=== PATIENT | female | born 1980 | race Caucasian/White ===

== ENCOUNTER 2017-10-22 11:11 | Emergency (ER) | payer OTHER ==
[~2017-10-22] VITALS: Ht 162.6 cm; Wt 68.0 kg
[2017-10-22 11:16] VITALS: BP 122/80
[2017-10-22 11:43] LABS: ABSOLUTE BASOPHIL COUNT 0 /CUMM (0.0-0.2); ABSOLUTE EOSINOPHIL COUNT 0.1 /CUMM (0.0-0.7); ABSOLUTE GRANULOCYTE CT 2.7 /CUMM (1.4-6.5); ABSOLUTE LYMPH COUNT 0.9 /CUMM (1.2-3.4); ABSOLUTE MONOCYTE COUNT 0.3 /CUMM (0.10-0.60); BASOPHIL % 0.8 % (0.0-2.0); EOSINOPHIL % 2.4 % (0-5); HEMATOCRIT 33.7 % (37-47); MEAN CORPUSCULAR HGB CONC 35.6 G/DL (33.0-37.0); MEAN CORPUSCULAR VOLUME 92.8 FL (81.0-99.0); MEAN PLATELET VOLUME 6.2 FL (7.4-10.4); PLATELET COUNT 187 /CUMM (130-400); RBC DISTRIBUTION WIDTH 14.7 % (11.5-14.5); RED BLOOD CELL CT 3.63 /CUMM (4.20-5.40); WHITE BLOOD CELL COUNT 4.1 /CUMM (4.8-10.8)
[2017-10-22] MEDS ORDERED: ACYCLOVIR400 M1 PO (12:11)
[2017-10-22] MEDS ORDERED: ALPRAZOLAM0.5 M4 PO (12:11)
--- NOTE | 2017-10-22 12:12 | ED AMS/SEIZURE/WEAK/DIZZY ---
History of Present Illness General Chief Complaint: Dizziness Stated Complaint: DIZZINESS XS ONE WEEK Source: patient, family Exam Limitations: no limitations Vital Signs & Intake/Output Vital Signs & Intake/Output Vital Signs Date Time Temp Pulse Resp B/P B/P Pulse O2 O2 Flow FiO2 Mean Ox Delivery Rate 10/22 1116 98.2 82 15 122/80 98 Room Air Room Air Allergies Coded Allergies: morphine (Severe, hypotension 10/22/17) adhesive (Intermediate, RASH 10/22/17) Latex, Natural Rubber (RASH 10/22/17) Reconcile Medications Acyclovir 400 MG TABLET 1 TAB PO BID ANTIBIOTIC, INFECTION (Reported) Alprazolam 0.5 MG TABLET 1 TAB PO QPM ANXIETY (Reported) Ondansetron HCl (Zofran) 4 MG TABLET 1 TAB PO Q6-8P PRN NAUSEA Scopolamine (Transderm-Scop) 1 MG/3 DAY PATCH.TD.3 1 PAT AD AD PRN VERTIGO APPLY EVERY THREE DAYS FOR VERTIGO BEHIND EAR. Triage Note: PT TO ED FOR C/C OF DIZZINESS THAT STARTED LAST FRIDAY. ROOM SPINNING DIZZINESS THAT GETS WORSE WITH HEAD MOVEMENTS, MILD NAUSEA. PT IS HOGKINS LYMPHOMA PT IS NOW IN REMISSION S/P STEM CELL TRANSPLANT 85 DAYS AGO. DENIES SOB, CP. Triage Nurses Notes Reviewed? yes Onset: Abrupt Duration: intermittent Timing: recent history Severity: severe Severity Numbers: 7 : No Patient currently breastfeeds: No HPI: Patient is a 37-year-old female with past medical history of Hodgkin's lymphoma currently in remission, anxiety who presents emergency room with concerns of a one-week history of intermittent room spinning sensation made worse with head movements. Patient has associated symptoms of nausea and lightheaded sensation and difficulty focusing with her visual acuity. Denies any headache fever chills your pain sore throat chest pain abdominal pain. Denies any chance of . Denies any illicit drug use smoking or drinking alcohol. Patient was evaluated yesterday at urgent care facility was given meclizine with mild improvement of symptoms (Juni Gamez) Past History Travel History Traveled to [place] past 21 day No Medical History Any Pertinent Medical History? see below for history Psychiatric: anxiety Cancer(s): HODGKINS LYMPHOMA Surgical History Surgical History: non-contributory Psychosocial History What is your primary language Gambian Tobacco Use: Quit >30 days ago ETOH Use: occasional use Illicit Drug Use: denies illicit drug use Family History Hx Contributory? No (Juni Gamez) Review of Systems Review of Systems Constitutional: Reports: no symptoms. EENTM: Reports: see HPI. Respiratory: Reports: no symptoms. Cardiovascular: Reports: no symptoms. GI: Reports: see HPI, nausea. Denies: abdominal pain. Genitourinary: Reports: no symptoms. Musculoskeletal: Reports: no symptoms. Skin: Reports: no symptoms. Neurological/Psychological: Reports: no symptoms. Hematologic/Endocrine: Reports: no symptoms. Immunologic/Allergic: Reports: no symptoms. All Other Systems: Reviewed and Negative (Juni Gamez) Physical Exam Physical Exam General Appearance: no apparent distress, alert, comfortable Head: atraumatic Eyes: Bilateral: normal appearance, PERRL, EOMI, other (HORIZONTAL NYSTAGMUS). Ears, Nose, Throat: normal pharynx, RIGHT TM NOTED CLEAR FLUID Neck: normal inspection, supple Respiratory: normal breath sounds, chest non-tender, no respiratory distress Cardiovascular: regular rate/rhythm Gastrointestinal: normal bowel sounds, soft, non-tender Neurologic/Psych: no motor/sensory deficits, awake, alert, oriented x 3, normal gait, normal mood/affect Skin: intact, normal color, warm/dry Core Measures ACS in differential dx? No CVA/TIA Diagnosis No Sepsis Present: No Sepsis Focused Exam Completed? No (Juni Gamez) Progress Differential Diagnosis: arrythmia, anemia, benign positional vertigo, CVA/stroke , dehydration, drug intoxication, encephalitis, electrolyte imbalance, GI bleed, hypoglycemia, hypoxia, intracranial Hem., intracranial mass/tumor, labrynthitis, meningitis, Meniere's disease, migraine [place], multiple sclerosis, pneumonia, postural hypotension, presyncope, post-traumatic vertigo, sepsis, seizure disorder, subarachnoid Hem., UTI/pyelo, vertebrobasilar insuff Plan of Care: Orders Procedure Date/time Status Add-on Test (ER Only) 10/22 1403 Active Add-on Test (ER Only) 10/22 1257 Active CULTURE,URINE 10/22 1257 Active Add-on Test (ER Only) 10/22 1236 Active EKG 10/22 1232 Active TROPONIN LEVEL 10/22 1135 Complete HUMAN BETA HCG SCREEN 10/22 1135 Complete URINE 10/22 1119 Complete URINALYSIS 10/22 1119 Complete COMPREHENSIVE METABOLIC PANEL 10/22 1119 Complete CBC WITHOUT DIFFERENTIAL 10/22 1119 Complete Laboratory Tests 10/22/17 1257: Urine Color YEL, Urine Clarity HAZY H, Urine pH 7.0, Ur Specific Drury 1.010, Urine Protein NEG, Urine Ketones NEG, Urine Nitrite NEG, Urine Bilirubin NEG, Urine Urobilinogen 0.2, Ur Leukocyte Esterase LARGE H, Ur Microscopic SEDIMENT EXAMINED, Urine WBC 15-25 H, Ur Epithelial Cells FEW, Urine Bacteria FEW H, Urine Hemoglobin NEG, Urine Glucose NEG, Urine Test NEGATIVE 10/22/17 1135: Anion Gap 12, Estimated GFR > 60, BUN/Creatinine Ratio 16.3, Glucose 68, Calcium 9.5, Total Bilirubin 0.5, AST 22, ALT 26, Alkaline Phosphatase 39, Troponin I < 0.01, Total Protein 7.3, Albumin 4.5, Globulin 2.8, Albumin/Globulin Ratio 1.6, Total Beta HCG NEGATIVE, CBC w Diff NO MAN DIFF REQ, RBC 3.63 L, MCV 92.8, MCH 33.0 H, MCHC 35.6, RDW 14.7 H, MPV 6.2 L, Gran % 66.0, Lymphocytes % 23.2, Monocytes % 7.6, Eosinophils % 2.4, Basophils % 0.8, Absolute Granulocytes 2.7, Absolute Lymphocytes 0.9 L, Absolute Monocytes 0.3, Absolute Eosinophils 0.1, Absolute Basophils 0 Microbiology 10/22 1257 URINE ROUT: Urine Culture - RECD Due to history of present illness and exam findings there is consideration of benign paroxysmal positional vertigo, patient has room spinning sensation and horizontal nystagmus denies any signs and symptoms of central vertigo No concerns of TIA or intracranial hemorrhage, patient was given meclizine and scopolamine and had improvement of symptoms patient had normal steady gait after discussed disposition plan with patient SHE AGREES AND HAS NO QUESTIONS reviewed all blood work with patient Urinalysis shows bacteriuria however she denies any UTI symptoms denies any dysuria hematuria or change in frequency of urination Urine culture will be obtained discussed results with patient Initial ED EK BPM,NSR (Carolyn SLATER,Juni) Departure Departure Disposition: HOME OR SELF CARE Condition: Stable Clinical Impression Primary Impression: Positional vertigo Referrals: Delta LEUNG,Salma Rico MD,Key (PCP/Family) Additional Instructions: As discussed begin [id number] Sudafed for congestion continue previously prescribed meclizine and begin the prescription of scopolamine patch and Zofran for nausea. Follow-up this week with ENT Dr. Sorenson for further evaluation treatment if symptoms worsen or if YOU develop new concerning symptoms return to emergency room Pres[facility] [place] Departure Forms: Customer Survey General Discharge Information Prescriptions: Current Visit Scripts Scopolamine (Transderm-Scop) 1 PAT AD AD PRN VERTIGO #9 PAT APPLY EVERY THREE DAYS FOR VERTIGO BEHIND EAR. Ondansetron HCl (Zofran) 1 TAB PO Q6-8P PRN NAUSEA #10 TAB (Juni Gamez) PA/[employer] WORK[employer] GENER[employer] Co-Sign Statement Statement: ED Attending supervision documentation- [] I saw and evaluated the patient. I have also reviewed all the pertinent lab results and diagnostic results. I agree with the findings and the plan of care as documented in the PA's/[employer] WORK[employer] GENER[employer]'s documentation. [x] I have reviewed the ED Record and agree with the PA's/DIST[employer] WORKER GENER[employer]'s documentation. [] Additions or exceptions (if any) to the PAs/DIST[employer]ERY WORKER GENERAL's note and plan are summarized below: [] (Darshan Negrete DO)
[2017-10-22] MEDS ORDERED: TRANSDERM-SCOP1 EAC1 AD (13:50)
[2017-10-22] MEDS ORDERED: ZOFRAN4 M2 PO (13:50)
== END 2017-10-22 14:41 ==
LOC: ERH 11:11
PROVIDERS: Physician Assistant
DX: H81.10 Benign paroxysmal vertigo, unspecified ear (principal)
CPT/HCPCS: 81001; 81025; 87086; 93005; 93010; J3101